=== PATIENT | male | born 1955 | race Caucasian/White ===

== ENCOUNTER 2017-04-25 08:42 | Day surgery (SDC) | payer MEDICARE, OTHER ==
[~2017-04-25] VITALS: Ht 167.6 cm; Wt 79.4 kg
[~2017-04-25 08:42] MED LIST: ASCO500T8 PO; BUTA-177 PO; CALC-160 PO; CHOL400T10 PO; DIVA500T2 PO; GLUC-121 PO; HYDR-3240 PO; KETO10TA PO; MEMA10TA PO; MULT-658 PO; OMEG1CAP2 PO; OMEP-110 PO; OXYC-302 PO; PANT40TA5 PO; PROP60CA8 PO; SOLI5TAB2 PO; TOPI50TA35 PO; TRAZ50TA18 PO; TRAZ5POW PO
[2017-04-25 09:44] VITALS: BP 122/79
[2017-04-25] MEDS ORDERED: LACTATED RINGERS 1,000 ML IV SCH (10:00)
[2017-04-25] MEDS ORDERED: MIDAZOLAM 1 MG/ML, 2ML ONE ×3 (10:25→12:03)
[2017-04-25] MEDS ORDERED: PROPOFOL 50 ML ONE (10:25)
[2017-04-25] MEDS ORDERED: DEXAMETHASONE 4 MG/ML, 1ML ONE (10:40)
[2017-04-25] MEDS ORDERED: KETOROLAC 30 MG/1 ML IV PRN (11:00)
[2017-04-25] MEDS ORDERED: PROMETHAZINE 25 MG/ML, 1ML IV PRN (11:00)
[2017-04-25] MEDS ORDERED: EPHEDRINE 50 MG/ML, 1ML IVPush PRN (11:00)
[2017-04-25] MEDS ORDERED: OXYcodone 5 MG/5 ML ORAL.SOL UDC PO PRN (11:00)
[2017-04-25] MEDS ORDERED: MEPERIDINE/PF 25MG/0.5ML IVPush PRN (11:00)
[2017-04-25] MEDS ORDERED: METOPROLOL 1 MG/ML, 5ML IV PRN (11:00)
[2017-04-25] MEDS ORDERED: ONDANSETRON 2MG/ML, 2ML IVPush PRN (11:00)
[2017-04-25] MEDS ORDERED: HYDROcodone/APAP 7.5-325MG/15ML UDC PO PRN (11:00)
[2017-04-25] MEDS ORDERED: ACETAMINOPHEN 325 MG TABLET PO PRN (11:00)
[2017-04-25] MEDS ORDERED: hydrALAzine 20 MG/ML, 1ML IV PRN (11:00)
[2017-04-25] MEDS ORDERED: LABETALOL 5MG/ML, 20ML IV PRN (11:00)
[2017-04-25] MEDS ORDERED: ALBUTEROL SULFATE 2.5 MG/3 ML NPPB PRN (11:00)
[2017-04-25] MEDS ORDERED: LORazepam 2 MG/ML, 1ML ONE (11:31)
[2017-04-25] MEDS: MIDAZOLAM 1 MG/ML, 2ML IV PRN ×2 (11:32→11:37)
[2017-04-25] MEDS: LORazepam 2 MG/ML, 1ML IVPush PRN ×2 (11:38→11:43)
[2017-04-25] MEDS ORDERED: FENTANYL PF 100 MCG/2ML ONE (12:03)
[2017-04-25] MEDS ORDERED: KETOROLAC 30 MG/1 ML ONE (12:03)
[2017-04-25] MEDS: FENTANYL PF 100 MCG/2ML IV PRN ×4 (12:06→12:30)
[2017-04-25] MEDS ORDERED: DIAZEPAM 5 MG/ML, 2ML IV PRN (12:30)
[2017-04-25] MEDS ORDERED: OXYcodone 5 MG/5 ML ORAL.SOL UDC ONE (13:04)
== END 2017-04-25 14:40 ==
LOC: OUT 08:42
PROVIDERS: ATTEND Internal Medicine Gastroenterology
DX: K22.70 Barrett's esophagus without dysplasia (principal); K44.9 Diaphragmatic hernia without obstruction or gangrene; G43.909 Migraine, unspecified, not intractable, without status migrainosus; Z98.890 Other specified postprocedural states; Z87.19 Personal history of other diseases of the digestive system
CPT/HCPCS: 43239; 88305; 93005; J1100; J1885; J2060; J2250; J2704; J3010

== ENCOUNTER → 2020-07-08 | Outpatient (CLI) | payer OTHER ==
[~2020-07-08] MED LIST changes: +GADOTERATE 10 MMOL/20 ML SYR ONE; -PANT40TA5 PO; +PANT40TA6 PO; +PROP60CA36 PO; -PROP60CA8 PO; -TRAZ50TA18 PO; +TRAZ50TA66 PO
== END | disposition home or self-care (01) ==
LOC: CFH 09:10
PROVIDERS: ATTEND Psychiatry & Neurology Neurology
DX: J32.3 Chronic sphenoidal sinusitis (principal); G20 Parkinson's disease; G91.1 Obstructive hydrocephalus; M54.81 Occipital neuralgia
CPT/HCPCS: 70553; A9575